=== PATIENT | male | born 1995 | race Caucasian/White ===

== ENCOUNTER 2019-04-29 11:50 | Emergency (ER) | payer SELFPAY ==
[2019-04-29 12:54] LABS: Urine Bacteria NONE SEEN /HPF (NONE SEEN); Urine Culture Reflex Order NOT NEEDED; Urine RBC >50 /HPF (NONE SEEN)
[2019-04-29 13:06] LABS: Absolute Lymphocytes (CBC) 1.5 K/uL (0.7-4.9); Basophils % 0.3 % (0-1.3); Hematocrit 40.6 % (39.6-49.0); Lymphocytes % 20.4 % (15.3-44.8); MPV 8.5 fL (7.6-11.3); RBC Red Blood Cell Count 4.69 M/uL (4.33-5.43)
[2019-04-29] MEDS ORDERED: NA CHLORIDE 0.9% 1,000 ML ONE (13:07)
[2019-04-29 13:23] LABS: BUN Blood Urea Nitrogen 14 mg/dL (7-18); Bicarbonate 30 mmol/L (21-32); Creatine Phosphokinase 55 U/L (39-308); Glucose Level 86 mg/dL (74-106); Potassium 3.6 mmol/L (3.5-5.1); Sodium Level 140 mmol/L (136-145)
--- NOTE | 2019-04-29 13:26 | EKG ---
Test Date: 2019-04-29 Test Time: 12:52:56 [place]ather [place]aver: LYNDA MEASUREMENT RESULTS: Intervals: Rate: 66 MO: 164 QRSD: 94 QT: 376 QTc: 394 [place]: P: 60 MO: 164 QRS: 96 T: 59 INTERPRETIVE STATEMENTS: Normal sinus rhythm Rightward axis Borderline ECG Compared to ECG 03/14/2014 22:21:00 No significant changes Electronically Signed On 04-29-19 13:25:28 CDT by Gus English
--- NOTE | 2019-04-29 13:58 | RAD REPORT ---
EXAM DESCRIPTION: CT - Stone Protocol - 04/29/2019 1:17 pm CLINICAL HISTORY: Abdominal pain, back pain, flank pain COMPARISON: None. TECHNIQUE: Axial 5 mm thick images were obtained without oral or IV contrast. The [id number] span s the entirety of the system including uppermost abdomen and lung bases. All CT scans are performed using dose optimization technique as appropriate and may include automated exposure control or mA/KV adjustment according to patient size. FINDINGS: Mild dilatation of the left collecting system is present without an obstructing calculus i dentifiable. No bladder calculus seen. There is no hydronephrosis on the right. Patient has a 2 mm no nobstructing calyx calcification upper pole on the left. No right-sided calculi seen. There is some m ineralization of renal pyramids on the right. No suspicious renal masses. Isodense masses and pyelone phritis are not excluded on a stone protocol CT scan. No bladder wall thickening or mass. No signific ant adrenal finding. Imaged portions of the liver, spleen and pancreas show no suspicious findings on non-contrast imaging . No gallbladder or biliary tree abnormality identified. No gastric dilatation or wall thickening. No dilated large or small bowel. There is moderate stool vo lume throughout the colon. No acute colon process identifiable. No hernia, mass or bulky lymphadenopathy noted. No free air or pneumatosis. No focal inflammatory str anding. No significant bony abnormality. IMPRESSION: Mild left-sided hydronephrosis with no obstructing calculus. Patient may have recently passed a stone. There is no bladder calculus. This is potentially a baselin e mild dilatation the patient. Any blood or inflammatory debris within the ureter can cause hydroneph rosis. Isodense masses and pyelonephritis are not excluded on stone protocol technique.
--- NOTE | 2019-04-29 14:07 | ER ---
Nurse's Notes [facility] Name: Bernard Tolentino Age: 24 yrs Sex: Male : 1995 Arrival Date: 04/29/2019 Time: 11:54 Bed 23 Private MD: None, None Diagnosis: Hydroureter;Nausea Presentation: 04/29 12:07 Presenting complaint: Patient states: Reports low back pain with nausea for 2 days. 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 Transition of care: patient was not received from another setting of care. Onset of symptoms was April 29, 2019. Risk Assessment: Do you want to hurt yourself or someone else? Patient reports no desire to harm self or others. Initial Sepsis Screen: Does the patient meet any 2 criteria? No. Patient's initial sepsis screen is negative. Does the patient have a suspected source of infection? No. Patient's initial sepsis screen is negative. Care prior to arrival: None. 12:07 Method Of Arrival: Ambulatory 12:07 Acuity: MAKENZIE 4 aj Triage Assessment: 12:08 General: Appears in no apparent distress. comfortable, Behavior is calm, cooperative, aj appropriate for age. Pain: Complains of pain in low back area. Neuro: Level of Consciousness is awake, alert, obeys commands, Oriented to person, place, time, situation, Appropriate for age. Respiratory: Airway is patent Respiratory effort is even, unlabored, Respiratory pattern is regular, symmetrical. GI: Reports nausea. Derm: Skin is intact, is healthy with good turgor, Skin is pink, warm \T\ dry. normal. Historical: - Allergies: 12:08 No Known Allergies; aj - Immunization history:: Adult Immunizations up to date. - Social history:: Smoking status: Patient/guardian denies using tobacco. - Ebola Screening: : Patient negative for fever greater than or equal to 101.5 degrees Fahrenheit, and additional compatible Ebola Virus Disease symptoms Patient denies exposure to infectious person Patient denies travel to an Ebola-affected area in the 21 days before illness onset No symptoms or risks identified at this time. Screenin:25 Abuse screen: Denies threats or abuse. Nutritional screening: No deficits noted. tw2 Tuberculosis screening: No symptoms or risk factors identified. Fall Risk None identified. Assessment: 12:30 General: Appears in no apparent distress. slender, Behavior is calm, cooperative, tw2 appropriate for age. Pain: Complains of pain in low back area. Neuro: Level of Consciousness is awake, alert, obeys commands, Oriented to person, place, time, situation. Cardiovascular: Denies chest pain, shortness of breath, Heart tones S1 S2 Patient's skin is warm and dry. Respiratory: Airway is patent Respiratory effort is even, unlabored, Respiratory pattern is regular, symmetrical, Breath sounds are clear bilaterally. GI: Abdomen is flat, Bowel sounds present X 4 quads. Reports nausea. : No signs and/or symptoms were reported regarding the genitourinary system. EENT: No signs and/or symptoms were reported regarding the EENT system. Derm: No signs and/or symptoms reported regarding the dermatologic system. Musculoskeletal: Range of motion: intact in all extremities. 13:00 Reassessment: Patient appears in no apparent distress at this time. No changes from tw2 previously documented assessment. Patient and/or family updated on plan of care and expected duration. Pain level reassessed. Patient is alert, oriented x 3, equal unlabored respirations, skin warm/dry/pink. 14:00 Reassessment: Patient appears in no apparent distress at this time. No changes from tw2 previously documented assessment. Patient and/or family updated on plan of care and expected duration. Pain level reassessed. Patient is alert, oriented x 3, equal unlabored respirations, skin warm/dry/pink. 14:23 Reassessment: Patient appears in no apparent distress at this time. No changes from tw2 previously documented assessment. Patient and/or family updated on plan of care and expected duration. Pain level reassessed. Patient is alert/active/playful, equal unlabored respirations, skin warm/dry/pink. Vital Signs: 12:08 BP 117 / 68; Pulse 89; Resp 18; Temp 97.7; Pulse Ox 100% on R/A; Weight 61.69 kg; aj Height 5 ft. 6 in. (167.64 cm); 13:00 BP 107 / 71; Pulse 70; Resp 17; Pulse Ox 99% on R/A; tw2 13:59 BP 112 / 72; Pulse 75; Resp 17; Pulse Ox 96% on R/A; tw2 12:08 Body Mass Index 21.95 (61.69 kg, 167.64 cm) ED Course: 11:54 Patient arrived in ED. dp 11:55 None, None is Private Physician. dp 11:58 L[facility] Carrasco [facility]-C [facility]. snw 11:58 Brandon Mora MD is Attending Physician. snw 12:08 Triage completed. aj 12:08 Arm band placed on left wrist. Patient placed in waiting room. 12:22 Bed in low position. Call light in reach. tw2 12:23 Velma Layton, RN is Primary Nurse. tw2 12:35 Urine Culture Sent. tw2 12:35 Urine Microscopic Only Sent. tw2 12:55 Inserted saline lock: 20 gauge in right antecubital area, using aseptic technique. tw2 Blood collected. 13:02 EKG done, by internal medicine veterinary technician. reviewed by Lona SOTO. 3 13:19 CT Stone Protocol In Process Unspecified. EDMS 14:24 No provider procedures requiring assistance completed. IV discontinued, intact, tw2 bleeding controlled, No redness/swelling at site. Pressure dressing applied. Administered Medications: 12:57 Drug: NS 0.9% 1000 ml Route: IV; Rate: 1 bolus; Site: left antecubital; tw2 14:00 Follow up: Response: No adverse reaction; IV Status: Completed infusion; IV Intake: tw2 1000ml 14:12 Drug: Miralax 17 grams Route: PO; 14:23 Follow up: Response: No adverse reaction tw2 Intake: 14:00 IV: 1000ml; Total: 1000ml. tw2 Outcome: 14:06 Discharge ordered by . snw 14:26 Discharged to home ambulatory. tw2 14:26 Condition: stable 14:26 Discharge instructions given to patient, Instructed on discharge instructions, follow up and referral plans. Demonstrated understanding of instructions, follow-up care. 14:26 Patient left the ED. tw2 Signatures: Dispatcher [employer] Anastasiia Teresa, RN Lona Diaz FNP-C FNP-CsnVelma Milligan RN RN tw2 Sophy Chin Natalie Thompson sm3 Luigi Mckeon dp
--- NOTE | 2019-04-29 14:08 | EDPHYS ---
Physician Documentation [facility] Name: Bernard Tolentino Age: 24 yrs Sex: Male : 1995 Arrival Date: 04/29/2019 Time: 11:54 Bed 23 Private MD: None, None ED Physician Brandon Mora HPI: 04/29 12:39 This 24 yrs old Male presents to ER via Ambulatory with complaints of Nausea, snw Flank Pain, Back Pain. 12:39 The patient presents to the emergency department with nausea, left flank pain. Onset: snw The symptoms/episode began/occurred gradually, 4 day(s) ago, and became persistent. Possible causes: unknown. The symptoms are aggravated by movement. Severity of symptoms: At their worst the symptoms were moderate. The patient has not experienced similar symptoms in the past. The patient has not recently seen a physician. works for an [employer] (been in multiple [employer]). Historical: - Allergies: 12:08 No Known Allergies; aj - Immunization history:: Adult Immunizations up to date. - Social history:: Smoking status: Patient/guardian denies using tobacco. - Ebola Screening: : Patient negative for fever greater than or equal to 101.5 degrees Fahrenheit, and additional compatible Ebola Virus Disease symptoms Patient denies exposure to infectious person Patient denies travel to an Ebola-affected area in the 21 days before illness onset No symptoms or risks identified at this time. ROS: 12:37 Constitutional: Negative for fever, chills, and weight loss, Eyes: Negative for injury, snw pain, redness, and discharge, ENT: Negative for injury, pain, and discharge, Neck: Negative for injury, pain, and swelling, Cardiovascular: Negative for chest pain, palpitations, and edema, Respiratory: Negative for shortness of breath, cough, wheezing, and pleuritic chest pain, Abdomen/GI: Negative for abdominal pain, nausea, vomiting, diarrhea, and constipation, Back: Negative for injury and pain, MS/Extremity: Negative for injury and deformity, Skin: Negative for injury, rash, and discoloration, Neuro: Negative for headache, weakness, numbness, tingling, and seizure, Psych: Negative for depression, anxiety, suicide ideation, homicidal ideation, and hallucinations. 12:37 : Positive for urinary symptoms, of the left low back area, flank, left flank pain. Exam: 12:37 Constitutional: This is a well developed, well nourished patient who is awake, alert, snw and in no acute distress. Head/Face: Normocephalic, atraumatic. Eyes: Pupils equal round and reactive to light, extra-ocular motions intact. Lids and lashes normal. Conjunctiva and sclera are non-icteric and not injected. Cornea within normal limits. Periorbital areas with no swelling, redness, or edema. ENT: Nares patent. No nasal discharge, no septal abnormalities noted. Tympanic membranes are normal and external auditory canals are clear. Oropharynx with no redness, swelling, or masses, exudates, or evidence of obstruction, uvula midline. Mucous membranes moist. Neck: Trachea midline, no thyromegaly or masses palpated, and no cervical lymphadenopathy. Supple, full range of motion without nuchal rigidity, or vertebral point tenderness. No Meningismus. Chest/axilla: Normal chest wall appearance and motion. Nontender with no deformity. No lesions are appreciated. Cardiovascular: Regular rate and rhythm with a normal S1 and S2. No gallops, murmurs, or rubs. Normal PMI, no JVD. No pulse deficits. Respiratory: Lungs have equal breath sounds bilaterally, clear to auscultation and percussion. No rales, rhonchi or wheezes noted. No increased work of breathing, no retractions or nasal flaring. Abdomen/GI: Soft, non-tender, with normal bowel sounds. No distension or tympany. No guarding or rebound. No evidence of tenderness throughout. Skin: Warm, dry with normal turgor. Normal color with no rashes, no lesions, and no evidence of cellulitis. MS/ Extremity: Pulses equal, no cyanosis. Neurovascular intact. Full, normal range of motion. Neuro: Awake and alert, GCS 15, oriented to person, place, time, and situation. Cranial nerves II-XII grossly intact. Motor strength 5/5 in all extremities. Sensory grossly intact. Cerebellar exam normal. Normal gait. Psych: Awake, alert, with orientation to person, place and time. Behavior, mood, and affect are within normal limits. 12:37 Back: pain, that is moderate, CVA tenderness, that is mild, that is moderate, is noted on the left. Vital Signs: 12:08 BP 117 / 68; Pulse 89; Resp 18; Temp 97.7; Pulse Ox 100% on R/A; Weight 61.69 kg; aj Height 5 ft. 6 in. (167.64 cm); 13:00 BP 107 / 71; Pulse 70; Resp 17; Pulse Ox 99% on R/A; tw2 13:59 BP 112 / 72; Pulse 75; Resp 17; Pulse Ox 96% on R/A; tw2 12:08 Body Mass Index 21.95 (61.69 kg, 167.64 cm) aj MDM: 12:29 Patient medically screened. snw 14:08 Data reviewed: vital signs, nurses notes. Data interpreted: Pulse oximetry: on room air snw is 96 %. Interpretation: acceptable. Counseling: I had a detailed discussion with the patient and/or guardian regarding: the historical points, exam findings, and any diagnostic results supporting the discharge/admit diagnosis, lab results, radiology results, the need for outpatient follow up, to return to the emergency department if symptoms worsen or persist or if there are any questions or concerns that arise at home. Special discussion: Based on the history and exam findings, there is no indication for further emergent testing or inpatient evaluation. I discussed with the patient/guardian the need to see the primary care provider for further evaluation of the symptoms. I discussed with the patient/guardian the need to see the urologist for further evaluation of the symptoms. 04/29 11:58 Order name: Urine Culture count includes the [facility] 04/29 11:58 Order name: Urine Microscopic Only; Complete Time: 12:58 snw 04/29 12:33 Order name: Urine Dipstick--Ancillary (enter results); Complete Time: 14:12 bd 04/29 12:37 Order name: CBC with Diff; Complete Time: 13:15 snw 04/29 12:37 Order name: Chem 7; Complete Time: 13:37 snw 04/29 12:37 Order name: CPK; Complete Time: 13:37 snw 04/29 11:58 Order name: Urine Dipstick-Ancillary (obtain specimen); Complete Time: 12:32 snw 04/29 12:37 Order name: CT Stone Protocol; Complete Time: 14:01 snw 04/29 12:37 Order name: EKG; Complete Time: 12:38 snw 04/29 12:37 Order name: EKG - Nurse/Tech; Complete Time: 12:59 snw 04/29 12:42 Order name: IV Start; Complete Time: 12:59 tw2 Administered Medications: 12:57 Drug: NS 0.9% 1000 ml Route: IV; Rate: 1 bolus; Site: left antecubital; tw2 14:00 Follow up: Response: No adverse reaction; IV Status: Completed infusion; IV Intake: tw2 1000ml 14:12 Drug: Miralax 17 grams Route: PO; 14:23 Follow up: Response: No adverse reaction tw2 Disposition: 04/30 07:42 Co-signature as Attending Physician, Brandon Mora MD I agree with the assessment and kdr plan of care. Disposition: 04/29/19 14:06 Discharged to Home. Impression: Hydroureter, Nausea. - Condition is Stable. - Discharge Instructions: Constipation, Adult, Kidney Stones, Nausea, Adult, Dietary Guidelines to Help Prevent Kidney Stones. - Work release form, Medication Reconciliation Form, Thank You Letter, Antibiotic Education, Prescription Opioid Use form. - Follow up: Emergency Department; When: As needed; Reason: Worsening of condition. Follow up: Private Physician; When: 2 - 3 days; Reason: Recheck today's complaints, Continuance of care, Re-evaluation by your physician. Signatures: Dispatcher [employer] Anastasiia Teresa, RN Brandon Alaniz MD MD [facility] Lona Carrasco, DEBT RECOVERY OFFICER-C DEBT RECOVERY OFFICER-Csnw Velma Layton RN RN tw2 Sophy Chin Corrections: (The following items were deleted from the chart) 04/29 14:26 14:06 04/29/2019 14:06 Discharged to Home. Impression: Hydroureter; Nausea. Condition tw2 is Stable. Forms are Medication Reconciliation Form, Thank You Letter, Antibiotic Education, Prescription Opioid Use. Follow up: Emergency Department; When: As needed; Reason: Worsening of condition. Follow up: Private Physician; When: 2 - 3 days; Reason: Recheck today's complaints, Continuance of care, Re-evaluation by your physician. sn
[2019-04-29 14:10] LABS: Urine Blood 3+ (NEG); Urine Glucose NEGATIVE (NEG); Urine Protein 3+ (NEG)
[2019-04-29] MEDS ORDERED: POLYETHYL GLY 3350 17 GM/DOSE ONE (14:28)
== END 2019-04-29 14:26 | disposition home or self-care (01) ==
LOC: ER 11:50
DX: N13.4 Hydroureter (principal)
CPT/HCPCS: 36415; 74176; 76377; 80048; 81003; 81015; 82550; 85025; 87077; 87086; 87088; 87186; 93005; 96360; 99284; J7030

== ENCOUNTER 2020-09-07 15:57 | Emergency (ER) | payer SELFPAY ==
--- OUTSIDE RECORDS SUMMARY | 2020-09-07 16:18 | XMS REPORT | Continuity of Care Document ---
:1995 Author Organization [facility] t Address [address] [place] [address] [address] [place] [address] Care Team Providers Name Role Phone Lab, Enmanuel Gold I Attending Clinician Unavailable Problems This patient has no known problems. Allergies, Adverse Reactions, Alerts This patient has no known allergies or adverse reactions. Medications This patient has no known medications. Procedures This patient has no known procedures. Encounters Start End Encounter Admission Attending Care Care Encounter Source Date/Time Date/Time Type Type Clinicians Facility Department ID 2020-04-17 2020-04-17 Laboratory Lab, [facility] [id number] 16:32:26 16:52:26 Only Fam P[facility] [place] [id number] [place] [id number] [place] [id number] nal [address] One Results This patient has no known results.
--- NOTE | 2020-09-07 17:49 | ER ---
Nurse's Notes [facility] Name: Bernard Tolentino Age: 25 yrs Sex: Male : 1995 Arrival Date: 09/07/2020 Time: 15:59 Bed 30 Private MD: Diagnosis: Dental root caries;Tinea Barbae Presentation: 09/07 16:02 Chief complaint: Patient states: Went to the Dentist, got my bottom teeth taken out and ca1 replaced last Monday. The R side of my jaw has been swollen before the procedure but it has gotten worse and right now it went down to under my chin and down my R neck. Reports difficulty swallowing. Coronavirus screen: Client denies travel out of the [place] in the last 14 days. At this time, the client does not indicate any symptoms associated with coronavirus-19. Ebola Screen: Patient negative for fever greater than or equal to 101.5 degrees Fahrenheit, and additional compatible Ebola Virus Disease symptoms Patient denies exposure to infectious person. Patient denies travel to an Ebola-affected area in the 21 days before illness onset. No symptoms or risks identified at this time. Initial Sepsis Screen: Does the patient meet any 2 criteria? No. Patient's initial sepsis screen is negative. Does the patient have a suspected source of infection? No. Patient's initial sepsis screen is negative. Risk Assessment: Do you want to hurt yourself or someone else? Patient reports no desire to harm self or others. Onset of symptoms was September 07, 2020. 16:02 Method Of Arrival: Ambulatory ca1 16:02 Acuity: MAKENZIE 4 ca1 Historical: - Allergies: 16:08 No Known Allergies; ca1 - PMHx: 16:08 None; ca1 - PSHx: 16:08 None; ca1 - Immunization history:: Adult Immunizations up to date, Flu vaccine is not up to date. - Social history:: Smoking status: Reported history of juuling and/or vaping. Assessment: 17:50 General: Appears in no apparent distress. Behavior is calm, cooperative. Pain: iw Complains of pain in right jaw. Neuro: Level of Consciousness is awake, alert, obeys commands, Oriented to person, place, time, situation, Moves all extremities. Full function. Cardiovascular: Patient's skin is warm and dry. Respiratory: Respiratory effort is even, unlabored, Respiratory pattern is regular. Derm: Vital Signs: 16:02 BP 123 / 85; Pulse 90; Resp 17 S; Temp 99.5(TE); Pulse Ox 100% on R/A; Weight 62.14 kg ca1 (R); Height 5 ft. 7 in. (170.18 cm) (R); Pain 5/10; 16:02 Body Mass Index 21.46 (62.14 kg, 170.18 cm) ca1 ED Course: 15:59 Patient arrived in ED. ag5 16:07 Triage completed. ca1 16:08 Arm band placed on right wrist. ca1 16:41 Lona Tan FNP-C is PHCP. snw 16:41 Bernardo Carlton MD is Attending Physician. snw 17:38 Lakesha Rebolledo, RN is Primary Nurse. iw Administered Medications: 17:54 Drug: DiFLUcan 200 mg Route: PO; iw 18:00 Follow up: Response: No adverse reaction iw 17:54 Drug: Clindamycin 300 mg Route: PO; iw 18:00 Follow up: Response: No adverse reaction iw Outcome: 17:49 Discharge ordered by . snw 18:12 Patient left the ED. iw Signatures: Lona Tan FNP-C [employer]-Csnw Lakesha Rebolledo, SCOTT CHAVEZ iw Ashley Merida RN RN [facility] Lexis Goodwin agMarjorie
--- NOTE | 2020-09-07 17:49 | EDPHYS ---
Physician Documentation [facility] Name: Bernard Tolentino Age: 25 yrs Sex: Male : 1995 Arrival Date: 09/07/2020 Time: 15:59 Bed 30 Private MD: ED Physician Bernardo Carlton HPI: 09/07 21:27 This 25 yrs old Male presents to ER via Ambulatory with complaints of Facial snw Swelling, Jaw Pain. 21:27 Onset: The symptoms/episode began/occurred gradually. Associated signs and symptoms: snw Pertinent positives: increased edema. Modifying factors: The patient symptoms are alleviated by nothing. The patient has experienced similar episodes in the past. pt had all bottom teeth removed and dentures made last week, area to right jaw with edema, no sores noted inside mouth or at gingiva. Historical: - Allergies: 16:08 No Known Allergies; ca1 - PMHx: 16:08 None; ca1 - PSHx: 16:08 None; ca1 - Immunization history:: Adult Immunizations up to date, Flu vaccine is not up to date. - Social history:: Smoking status: Reported history of juuling and/or vaping. ROS: 21:27 Constitutional: Negative for fever, chills, and weight loss, Eyes: Negative for injury, snw pain, redness, and discharge, ENT: Negative for injury, pain, and discharge, + edema to right jaw, pt states he had all bottom teeth pulled last week and is now wearing dentures without pain. Neck: Negative for injury, pain, and swelling, Cardiovascular: Negative for chest pain, palpitations, and edema, Respiratory: Negative for shortness of breath, cough, wheezing, and pleuritic chest pain, Abdomen/GI: Negative for abdominal pain, nausea, vomiting, diarrhea, and constipation, Back: Negative for injury and pain, : Negative for injury, bleeding, discharge, and swelling, MS/Extremity: Negative for injury and deformity, Skin: Negative for injury, rash, and discoloration, Neuro: Negative for headache, weakness, numbness, tingling, and seizure. Exam: 21:25 Constitutional: This is a well developed, well nourished patient who is awake, alert, snw and in no acute distress. Eyes: Pupils equal round and reactive to light, extra-ocular motions intact. Lids and lashes normal. Conjunctiva and sclera are non-icteric and not injected. Cornea within normal limits. Periorbital areas with no swelling, redness, or edema. ENT: Nares patent. No nasal discharge, no septal abnormalities noted. Tympanic membranes are normal and external auditory canals are clear. Oropharynx with no redness, swelling, or masses, exudates, or evidence of obstruction, uvula midline. Mucous membranes moist. Neck: Trachea midline, no thyromegaly or masses palpated, and no cervical lymphadenopathy. Supple, full range of motion without nuchal rigidity, or vertebral point tenderness. No Meningismus. Chest/axilla: Normal chest wall appearance and motion. Nontender with no deformity. No lesions are appreciated. Cardiovascular: Regular rate and rhythm with a normal S1 and S2. No gallops, murmurs, or rubs. Normal PMI, no JVD. No pulse deficits. Respiratory: Lungs have equal breath sounds bilaterally, clear to auscultation and percussion. No rales, rhonchi or wheezes noted. No increased work of breathing, no retractions or nasal flaring. Abdomen/GI: Soft, non-tender, with normal bowel sounds. No distension or tympany. No guarding or rebound. No evidence of tenderness throughout. Back: No spinal tenderness. No costovertebral tenderness. Full range of motion. MS/ Extremity: Pulses equal, no cyanosis. Neurovascular intact. Full, normal range of motion. Neuro: Awake and alert, GCS 15, oriented to person, place, time, and situation. Cranial nerves II-XII grossly intact. Motor strength 5/5 in all extremities. Sensory grossly intact. Cerebellar exam normal. Normal gait. Psych: Awake, alert, with orientation to person, place and time. Behavior, mood, and affect are within normal limits. 21:25 Head/face: Noted is swelling, that is moderate, that is severe, of the right jaw. 21:25 Skin: Appearance: normal except for affected area, whitish dry flaking skin over swelling with loss of avalos hair and central clearing. Vital Signs: 16:02 BP 123 / 85; Pulse 90; Resp 17 S; Temp 99.5(TE); Pulse Ox 100% on R/A; Weight 62.14 kg ca1 (R); Height 5 ft. 7 in. (170.18 cm) (R); Pain 5/10; 16:02 Body Mass Index 21.46 (62.14 kg, 170.18 cm) ca1 MDM: 17:35 Patient medically screened. snw 21:30 Data reviewed: vital signs, nurses notes. Data interpreted: Pulse oximetry: on room air snw is 100 %. Interpretation: normal. Counseling: I had a detailed discussion with the patient and/or guardian regarding: the historical points, exam findings, and any diagnostic results supporting the discharge/admit diagnosis, the presence of at least one elevated blood pressure reading (>120/80) during this emergency department visit, the need for outpatient follow up, for definitive care, to return to the emergency department if symptoms worsen or persist or if there are any questions or concerns that arise at home. Special discussion: I have referred the patient to see his PCP for further evaluation of high blood pressure. Based on the history and exam findings, there is no indication for further emergent testing or inpatient evaluation. I discussed with the patient/guardian the need to see a dentist for further evaluation of the symptoms. I discussed with the patient/guardian the need to see the primary care provider for further evaluation of the symptoms. Administered Medications: 17:54 Drug: DiFLUcan 200 mg Route: PO; iw 18:00 Follow up: Response: No adverse reaction iw 17:54 Drug: Clindamycin 300 mg Route: PO; iw 18:00 Follow up: Response: No adverse reaction iw Disposition: 09/07/20 17:49 Discharged to Home. Impression: Dental root caries, Tinea Barbae. - Condition is Stable. - Discharge Instructions: Dental Pain, Tinea Versicolor, [id number], Root Canal. - Prescriptions for Clindamycin HCl 150 mg Oral Capsule - take 2 capsule by ORAL route every 8 hours for 10 days; 60 capsule. Ultram 50 mg Oral Tablet - take 1 tablet by ORAL route every 6 hours As needed; 12 tablet. Fluconazole 200 mg Oral Tablet - take 1 tablet by ORAL route one time Take in 10 days (09/17/20); 1 tablet. - Medication Reconciliation Form, Thank You Letter, Antibiotic Education, Prescription Opioid Use, Work release form form. - Follow up: Emergency Department; When: As needed; Reason: Worsening of condition. Follow up: Private Physician; When: 2 - 3 days; Reason: Re-evaluation by your physician. - Problem is an acute exacerbation. - Symptoms have worsened. Addendum: 09/09/2020 19:42 Co-signature as Attending Physician, Bernardo Carlton MD. r n Signatures: Lona Tan, [employer] WORK DISPATCHER-[employer] Lakesha Rebolledo, RN RN iw Bernardo Carlton MD MD rn Acob, Ashley, RN RN ca1 Corrections: (The following items were deleted from the chart) 09/07 18:12 17:49 09/07/2020 17:49 Discharged to Home. Impression: Dental root caries; Tinea iw Barbae. Condition is Stable. Forms are Medication Reconciliation Form, Thank You Letter, Antibiotic Education, Prescription Opioid Use. Follow up: Emergency Department; When: As needed; Reason: Worsening of condition. Follow up: Private Physician; When: 2 - 3 days; Reason: Re-evaluation by your physician. Problem is an acute exacerbation. Symptoms have worsened. snw
[2020-09-07] MEDS ORDERED: FLUCONAZOLE 100 MG TAB ONE (18:05)
[2020-09-10 22:26] VITALS: BP 123/85; TEMP 99.5; O2SAT 100
== END 2020-09-07 18:12 | disposition home or self-care (01) ==
LOC: ER 15:57
DX: K02.7 Dental root caries (principal); B35.0 Tinea barbae and tinea capitis; Z87.891 Personal history of nicotine dependence
CPT/HCPCS: 99282